=== PATIENT | female | born 1965 | race African-American/Black ===

== ENCOUNTER 2018-11-20 14:44 | Emergency (ER) | payer MEDICAID, OTHER ==
[2018-11-20 15:29] LABS: ADD MAN DIFF? NO
[2018-11-20 15:32] LABS: BASOPHILS % 0.4 % (0.0-2.0); EOSINOPHILS # 0.1 10^3/ul (0.0-0.5); EOSINOPHILS % 1.8 % (0.0-7.0); HEMATOCRIT 37.1 % (37.0-47.0); HEMOGLOBIN 11.4 g/dl (12.0-16.0); LYMPHOCYTES # 1.4 10^3/ul (0.8-2.9); LYMPHOCYTES % 20.3 % (15.0-51.0); MEAN CORPUSCULAR HEMOGLOBIN 29.1 pg (29.0-33.0); MEAN CORPUSCULAR HGB CONC 30.7 g/dl (32.0-37.0); MEAN CORPUSCULAR VOLUME 94.6 fl (82.0-101.0); MEAN PLATELET VOLUME 12.2 fl (7.4-10.4); MONOCYTE # 0.3 10^3/ul (0.3-0.9); NEUTROPHIL # 4.9 10^3/ul (1.6-7.5); NEUTROPHILS % 72.1 % (39.0-77.0); PLATELET COUNT 222 10^3/UL (140-415); RED BLOOD COUNT 3.92 10^6/ul (4.20-5.40); RED CELL DISTRIBUTION WIDTH 13.9 % (11.5-14.5)
[2018-11-20 15:32] LABS: WHITE BLOOD COUNT 6.7 10^3/ul (4.8-10.8)
[2018-11-20] MEDS: HYDROCODONE/APAP (10/325) TAB PO (15:41)
[2018-11-20 15:57] LABS: AMPHETAMINE/METHAMPHETAMINE Negative (NEGATIVE); BARBITURATES Negative (NEGATIVE); BENZODIAZEPINES Positive (NEGATIVE); CANNABINOIDS Negative (NEGATIVE); COCAINE Negative (NEGATIVE); OPIATES Negative (NEGATIVE)
[2018-11-20 16:26] LABS: ANION GAP 10 (5-13); BLOOD UREA NITROGEN 12 mg/dl (7-20); CALCIUM 9.8 mg/dl (8.4-10.2); CARBON DIOXIDE 27 mmol/L (21-31); CHLORIDE 106 mmol/L (97-110); CREATININE 0.72 mg/dl (0.44-1.00); ETHANOL < 10.0 mg/dl (0-0); Estimated GFR > 60 mL/min (>60); GLUCOSE 100 mg/dl (70-220); POTASSIUM 3.8 mmol/L (3.5-5.1); SODIUM 143 mmol/L (135-144)
[2018-11-20] MEDS: LORAZEPAM 1 MG TAB PO (19:07)
[2018-11-21] MEDS: LORAZEPAM 1 MG TAB PO (09:44)
[2018-11-21] MEDS: HYDROCODONE/APAP (5/325) TAB PO (09:44)
== END 2018-11-21 12:18 | disposition home or self-care (01) ==
LOC: E/R 14:44
DX: R45.851 Suicidal ideations (principal); G89.29 Other chronic pain; Z72.89 Other problems related to lifestyle
CPT/HCPCS: 80048; 80307; 84703; 85025; 99283